=== PATIENT | male | born 1985 | race Caucasian/White ===

== ENCOUNTER 2022-10-18 06:05 | Day surgery (SDC) | payer BC ==
[2022-10-15 10:01] VITALS: BMI 33.5
[2022-10-18] MEDS ORDERED: CEFAZOLIN 2 GM VIAL ONE (06:36)
[2022-10-18] MEDS ORDERED: Sodium Chloride 0.9% 100 ML ONE (06:37)
[2022-10-18] MEDS ORDERED: Bupivacaine/Epinephrine 0.25% 30 ML VIAL ONE (06:43)
[2022-10-18] MEDS ORDERED: fentaNYL PF 100 MCG/2 ML SYRINGE ONE ×2 (07:24→07:25)
[2022-10-18] MEDS ORDERED: Famotidine/PF 20 mg/2ml Vial ONE (07:25)
[2022-10-18] MEDS ORDERED: Metoclopramide HCl 10 MG/2 ML VIAL ONE (07:39)
[2022-10-18] MEDS ORDERED: Ketorolac Tromethamine 30 MG/ML VIAL ONE (07:39)
[2022-10-18] MEDS ORDERED: PROPOFOL 200 MG/20 ML VIAL ONE (07:39)
[2022-10-18] MEDS ORDERED: Lidocaine 1% PF 5 ML VIAL ONE (07:39)
[2022-10-18] MEDS ORDERED: Ondansetron PF 4 MG/2 ML Vial ONE (07:39)
[2022-10-18] MEDS ORDERED: Dexamethasone 20 MG/5 ML VIAL ONE (07:39)
[2022-10-18] MEDS ORDERED: HYDROmorphone 0.5 MG/0.5 ML SYRINGE ONE (08:37)
[2022-10-18] MEDS ORDERED: Acetaminophen/Codeine 30-300mg Tablet ONE (09:59)
== END 2022-10-18 10:25 | disposition home or self-care (01) ==
LOC: SDC 06:05
PROVIDERS: ATTEND Surgery
PROC: 0WQF0ZZ Repair Abdominal Wall, Open Approach (ICD-10-PCS; principal; 2022-10-18)
DX: K42.9 Umbilical hernia without obstruction or gangrene (principal); I10 Essential (primary) hypertension; G47.30 Sleep apnea, unspecified; E66.9 Obesity, unspecified; Z68.33 Body mass index [BMI] 33.0-33.9, adult; Z86.16 Personal history of COVID-19; Z87.891 Personal history of nicotine dependence; Z79.1 Long term (current) use of non-steroidal anti-inflammatories (NSAID); Z79.899 Other long term (current) drug therapy; Z88.5 Allergy status to narcotic agent
CPT/HCPCS: 93005; 93010; J1100; J1170; J1885; J2405; J2704; J2765; J3490; S0028